=== PATIENT | female | born 1995 | race Caucasian/White ===

== ENCOUNTER 2018-11-04 12:48 | Emergency (ER) | payer BC ==
[~2018-11-04] VITALS: Ht 160 cm; Wt 65.8 kg
[2018-11-04 13:01] VITALS: BP 130/82
[2018-11-04] MEDS ORDERED: IBUPROFEN 600 MG TABLET PO ONE ×2 (13:30→13:32)
[2018-11-04] MEDS ORDERED: SULFAMETH/TRIMETH 800/160 MG 1 UDTAB TABLET PO ONE ×2 (13:30→13:32)
[2018-11-04] MEDS ORDERED: CEPHALEXIN MONOHYDRATE 500 MG CAPSULE PO ONE ×2 (13:30→13:31)
[2018-11-04] MEDS ORDERED: IBUPROFEN 400 MG TABLET ONE (13:33)
== END 2018-11-04 13:50 | disposition home or self-care (01) ==
LOC: ER 12:53
DX: L03.114 Cellulitis of left upper limb (principal)